=== PATIENT | female | born 1970 | race Caucasian/White ===

== ENCOUNTER 2021-12-18 14:50 | Emergency (ER) | payer MEDICARE ==
[2021-12-18 16:28] LABS: BASOPHIL 0.5 % (0-2); EOSINOPHIL 1.9 % (0-5); HCT 40.6 % (37.0-47.0); HGB 12.9 g/dl (12.5-16.0); LYMPHOCYTE 25.6 % (15-48); MCH 26.1 pg (25.0-31.0); MCHC 31.8 g/dL (32.0-36.0); MONOCYTE 7.2 % (0-12); MPV 9.3 fL (6.0-9.5); NEUTROPHIL 64.1 % (41-80); NRBC 0; PLT 265 K/uL (150-400); RBC 4.95 M/uL (4.20-5.40); RDW 14.3 % (11.5-14.0); WBC 8.6 K/uL (4.0-10.5)
[2021-12-18 16:46] LABS: ALBUMIN 3.4 g/dL (3.4-5.0); BILIRUBIN - TOTAL 0.7 mg/dL (0.2-1.0); BUN/CREAT RATIO (CALC) 9.9 RATIO; CREATININE 0.91 mg/dL (0.51-0.95); POTASSIUM 3.5 mmol/L (3.5-5.1); TOTAL PROTEIN 7.4 g/dL (6.4-8.2)
[2021-12-18 17:06] LABS: BILIRUBIN NEGATIVE (NEGATIVE); BLOOD NEGATIVE Ery/uL (NEGATIVE); CLARITY CLEAR (CLEAR); COLOR YELLOW (YELLOW); GLUCOSE (U) NORMAL (NORMAL); LEUKOCYTES NEGATIVE Leu/uL (NEGATIVE); NITRITE NEGATIVE (NEGATIVE); PROTEIN NEGATIVE (NEGATIVE); SPECIFIC GRAVITY 1.025 (1.001-1.030); UROBILINOGEN 0.2 mg/dL (0.2-1.0)
[2021-12-18 17:06] LABS: INFLUENZA A NAA NEGATIVE (NEGATIVE)
[2021-12-18 17:09] LABS: MAGNESIUM 2.3 mg/dL (1.8-2.4)
[2021-12-18 17:11] LABS: CORONAVIRUS 2019 SARS-COV-2 POSITIVE (NEGATIVE)
== END 2021-12-18 19:48 | disposition home or self-care (01) ==
LOC: FER 14:50
PROVIDERS: Internal Medicine
DX: R07.89 Other chest pain (principal); R05.9 Cough, unspecified; R53.81 Other malaise; I10 Essential (primary) hypertension; Z88.6 Allergy status to analgesic agent; Z88.8 Allergy status to other drugs, medicaments and biological substances; Z88.2 Allergy status to sulfonamides; Z20.822 Contact with and (suspected) exposure to COVID-19
CPT/HCPCS: 36415; 71045; 80053; 81003; 83690; 83735; 83880; 84443; 84484; 85025; 93005; U0002